=== PATIENT | female | born 1985 | race Caucasian/White ===

== ENCOUNTER 2024-05-28 14:24 | Emergency (ER) | payer MEDICAID, OTHER ==
[~2024-05-28] VITALS: Ht 162.6 cm; Wt 70.0 kg
[~2024-05-28 14:24] MED LIST: KEPP500 MT
[2024-05-28 14:41] VITALS: O2SAT 98
[2024-05-28 15:23] LABS: BASOPHILS % 0.4 % (0.0-2.0); EOSINOPHILS % 0.7 % (0.0-5.0); HEMATOCRIT. 38.3 % (36.0-48.0); HEMOGLOBIN. 12.8 g/dL (12.0-16.0); LYMPHOCYTES % 21.9 % (20.0-50.0); MEAN CORPUSCULAR HEMOGLOBIN 29.6 pg (28.0-32.0); MEAN CORPUSCULAR HGB CONC 33.4 g/dL (31.0-37.0); MEAN CORPUSCULAR VOLUME 88.8 fL (81.0-99.0); MEAN PLATELET VOLUME 7.9 fl (7.4-10.4); MONOCYTES % 6.8 % (2.0-8.0); NEUTROPHILS % 70.2 % (40.0-76.0); PLATELET 202 x1000/uL (130-400); RED BLOOD CELL COUNT 4.31 mill/uL (4.2-5.4); RED CELL DISTRIBUTION WIDTH 13.5 % (11.6-14.6)
[2024-05-28 15:27] LABS: CARBON DIOXIDE 24 mEq/L (21-32); CHLORIDE 106 mEq/L (98-107); POTASSIUM 3.8 mEq/L (3.5-5.1); SODIUM 136 mEq/L (136-145)
[2024-05-28 15:28] LABS: CALCIUM 9.2 mg/dL (8.7-10.4)
[2024-05-28 15:32] LABS: CREATININE 0.6 mg/dL (0.6-1.0)
[2024-05-28 15:33] LABS: GLUCOSE 106 mg/dL (70-105); UREA NITROGEN BLOOD 12 mg/dL (9-23)
[2024-05-28 15:47] LABS: B-HCG QUANTITATIVE 107649 mIU/mL (<3)
[2024-05-28 17:35] LABS: CLARITY URINE CLEAR (CLEAR); COLOR URINE YELLOW (YELLOW); GLUCOSE URINE NEGATIVE (NEGATIVE); KETONES URINE NEGATIVE (NEGATIVE); LEUKOCYTE ESTERASE URINE 3+ (NEGATIVE); NITRITE URINE NEGATIVE (NEGATIVE); OCCULT BLOOD URINE NEGATIVE (NEGATIVE); PROTEIN URINE NEGATIVE (NEGATIVE); SPECIFIC GRAVITY URINE 1.015 (1.005-1.030); UROBILINOGEN URINE 0.2 E.U./dL (0.2-1.0)
[2024-05-28 17:52] LABS: BACTERIA URINE 2+; RBC URINE 0-2 /hpf (0-2); SQUAMOUS EPITHELIAL CELL URINE 1+ /lpf (RARE/1+); WBC URINE 15-25 /hpf (0-2)
[2024-05-28] MEDS ORDERED: CEPH500C2 MT (18:35)
[2024-05-28 18:51] VITALS: BP 124/70; PULSE 78; RESP 18; TEMP 36.83628; O2SAT 98
== END 2024-05-28 19:31 | disposition home or self-care (01) ==
LOC: ER 14:24
DX: O26.891 Other specified pregnancy related conditions, first trimester (principal); Z3A.01 Less than 8 weeks gestation of pregnancy
CPT/HCPCS: 36415; 76801; 80048; 81003; 81025; 84702; 85025; 99284

== ENCOUNTER 2025-05-31 15:50 | Emergency (ER) | payer MEDICAID ==
[~2025-05-31] VITALS: Ht 167.6 cm; Wt 72.0 kg
[~2025-05-31 15:50] MED LIST changes: +CEPH500C2 MT
[2025-05-31 15:57] VITALS: O2SAT 99
[2025-05-31 16:04] VITALS: BP 116/75; PULSE 92; RESP 16; TEMP 36.9; O2SAT 100
== END 2025-05-31 19:50 | disposition left against medical advice (07) ==
LOC: ER 15:50
DX: R50.9 Fever, unspecified (principal); R06.02 Shortness of breath; R51.9 Headache, unspecified; Z53.21 Procedure and treatment not carried out due to patient leaving prior to being seen by health care provider